=== PATIENT | male | born 1955 | race African-American/Black ===

== ENCOUNTER 2019-12-04 12:42 | Emergency (ER) | payer OTHER, SELFPAY ==
--- NOTE | ~2019-12-04 | XR_ITS ---
EXAMINATION: XR abdomen/kub 1V DATE: 12/04/2019 14:49 INDICATION: Constipation. Abdominal pain. TECHNIQUE: A supine view of the abdomen on 2 radiographs was obtained. COMPARISON: None. FINDINGS: There are no dilated loops of bowel. There is a moderate volume of stool in the colon. Calc ifications in the pelvis are likely phleboliths. IMPRESSION: 1. Nonobstructive bowel gas pattern. Reviewed, dictated and finalized at location B. 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
--- NOTE | ~2019-12-04 | CT_ITS ---
EXAMINATION: CT abdomen pelvis w con EXAM DATE: 12/04/2019 17:24 INDICATION: Low abdominal pain. Recent hemorrhoidectomy. Constipation. TECHNIQUE: Spiral CT of the abdomen and pelvis was performed following intravenous injection of 100 m L Omnipaque 350. Axial, coronal and sagittal images were reviewed. The dose-length product (DLP) fo r this examination was 1456.50 mGy-cm. The exposure was tailored according to patient size (auto mA exposure control), and iterative reconstruction (ASIR) was used as additional dose reduction techniqu e. There is no prior study for comparison. FINDINGS: The liver, spleen, adrenal glands and pancreas are unremarkable. Gallbladder is unremarkab le. No biliary obstruction. Portal and splenic veins are patent. Kidneys enhance symmetrically. T here is no hydronephrosis. There is moderate prostatomegaly. The bladder is unremarkable. There is no retroperitoneal or pelvic lymphadenopathy. Small bilateral inguinal fat-containing hernias. The appendix is normal. The stomach and small bowel are unremarkable. There is moderate amount of c olonic stool. There is mild sigmoid colonic diverticulosis. There is no adjacent inflammatory change to suggest diverticulitis. No free intraperitoneal gas. The heart is normal in size. There are n o pericardial or pleural effusions. There are bibasilar linear opacities, subsegmental atelectasis. There are no osteoblastic or osteolytic lesions identified. IMPRESSION: 1. No acute intra-abdominal findings. 2. Moderate amount of colonic stool, constipation. 3. Prostatomegaly. Reviewed, dictated and finalized at location A. 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
[2019-12-04 13:13] VITALS: BP 132/101; PULSE 80; RESP 17; TEMP 37.3; O2SAT 98
[2019-12-04 16:13] LABS: Basophils Absolute Auto 0.1 K/mm3 (0.0-0.1); Basophils Percent Auto 1.3 % (0.2-1.2); Eosinophils Absolute Auto 0.3 K/mm3 (0-0.3); Eosinophils Percent Auto 4.1 % (0-4.4); Hematocrit 41.3 % (42.0-52.0); Hemoglobin 13.1 g/dL (14.0-18.0); Immature Granulocyte Absolute 0.03 K/mm3 (0.00-0.031); Immature Granulocyte Percent A 0.4 % (0-0.5); Lymphocytes Absolute Auto 1.89 K/mm3 (0.9-3.2); Lymphocytes Percent Auto 24.1 % (18.3-44.2); Mean Corpuscular HGB Conc 31.7 g/dl (32-36); Mean Corpuscular Hemoglobin 30.7 pg (26-34); Mean Corpuscular Volume 96.7 fl (80-100); Mean Platelet Volume 10.4 fl (7.4-10.4); Monocytes Absolute Auto 0.9 K/mm3 (0.1-0.6); Monocytes Percent Auto 10.8 % (2.6-8.5); Neutrophils Absolute Auto 4.7 K/mm3 (1.3-6.7); Neutrophils Percent Auto 59.3 % (45.5-73.1); Platelet Count Result 235 k/mm3 (150-375); Red Blood Count 4.27 M/mm3 (4.6-6.20); Red Cell Distribution Width 11.8 % (11.5-14.5); White Blood Count 7.8 K/mm3 (4.5-10.0)
[2019-12-04 16:25] LABS: Alanine Aminotransferase 64 U/L (4-50); Albumin Level 3.9 g/dL (3.5-5.1); Alkaline Phosphatase 56 U/L (38-126); Aspartate Amino Transferase 49 U/L (17-59); Bilirubin,Total 0.6 mg/dL (0.2-1.3); Blood Urea Nitrogen 9 mg/dL (9-20); Calcium 9.1 mg/dL (8.4-10.2); Carbon Dioxide 26 mmol/L (22-30); Chloride 103 mmol/L (98-107); Estimated Glomerular Filt Rate > 60; Glucose 105 mg/dL (75-110); Lipase 28 U/L (23-300); Sodium 138 mmol/L (137-145)
[2019-12-04] MEDS: LACTATED RINGERS 1,000 ML 999 ML IV CONT (17:13)
[2019-12-04 17:34] LABS: Add Urine Microscopic? YES; Appearance Urine Clear (Clear); Bilirubin Urine Negative (Negative); Blood Urine Negative (Negative); Color Urine Yellow (Yellow); Glucose Urine UA Negative (Negative); Ketones Urine Negative (Negative); Leukocyte Esterase Ur Trace LEU/UL (Negative); Mucus Urine Few /lpf; Nitrate Urine Negative (Negative); Protein Urine Negative (Negative); RBC Urine 0-2 /hpf (0-2); Specific Grav Ur 1.019 (1.001-1.035); Squamous Epithelial Cell Urine Rare /hpf (Few); Urobilinogen Urine Negative mg/dL (<2.0)
[2019-12-04] MEDS: METHYLNALTREXONE 12 MG/0.6 ML VIAL SUB-Q (17:57)
--- NOTE | 2019-12-04 18:22 | ED.ABDPAIN ---
HPI - Abdominal Pain General Chief Complaint: Abdominal Pain Stated Complaint: abd pain Time Seen by Provider: 12/04/19 15:45 Source: patient Limitations: no limitations History of Present Illness HPI narrative: The patient is a 64-year-old male who presents to emergency department for evaluation of crampy abdominal pain for the last several days coupled with constipation and some rectal pain patient had a hemorrhoidectomy 10 days ago has not followed up since the incident Related Data Allergies Allergy/AdvReac Type Severity Reaction Status Date / Time No Known Allergies Allergy Verified 12/04/19 17:14 [facility] Social History Social History Gender identity (if verbalized by the patient): Male Course Course Emergency Course: Patient in the room aware of case findings treatment plan and diagnosis agreeing to follow-up as directed or to return if symptoms worsen or concerns Vital Signs Vital signs: Vital Signs Temperature 99.1 F 12/04/19 13:13 Pulse Rate 80 12/04/19 13:13 Respiratory Rate 17 12/04/19 13:13 Blood Pressure 132/101 H 12/04/19 13:13 Pulse Oximetry 98 12/04/19 13:13 Temperature 99.1 F 12/04/19 13:13 Pulse Rate 80 12/04/19 13:13 Respiratory Rate 17 12/04/19 13:13 Blood Pressure 132/101 H 12/04/19 13:13 Pulse Oximetry 98 12/04/19 13:13 MDM - Abdominal Pain MDM Narrative Medical decision making narrative: Patient in the room without high risk changes in the blood work or imaging with constipation as the likely etiology of his symptoms felt appropriate for discharge home provided with reasons to return Lab Data Result diagrams: 12/04/19 16:07 12/04/19 16:07 Labs: Lab Results 12/04/19 12/04/19 12/04/19 Range/Units 16:07 16:07 17:16 WBC 7.8 (4.5-10.0) K/mm3 RBC 4.27 L (4.6-6.20) M/mm3 Hgb 13.1 L (14.0-18.0) g/dL Hct 41.3 L (42.0-52.0) % MCV 96.7 (80-100) fl MCH 30.7 (26-34) pg MCHC 31.7 L (32-36) g/dl RDW 11.8 (11.5-14.5) % Plt Count 235 (150-375) k/mm3 MPV 10.4 (7.4-10.4) fl Immature Gran % (Auto) 0.4 (0-0.5) % Neut % (Auto) 59.3 (45.5-73.1) % Lymph % (Auto) 24.1 (18.3-44.2) % Frio % (Auto) 10.8 H (2.6-8.5) % Eos % (Auto) 4.1 (0-4.4) % Baso % (Auto) 1.3 H (0.2-1.2) % Lymph # (Auto) 1.89 (0.9-3.2) K/mm3 Frio # (Auto) 0.9 H (0.1-0.6) K/mm3 Eos # (Auto) 0.3 (0-0.3) K/mm3 Baso # (Auto) 0.1 (0.0-0.1) K/mm3 Abs Immat Gran (auto) 0.03 (0.00-0.031) K/mm3 Absolute Neuts (auto) 4.7 (1.3-6.7) K/mm3 Absolute Nucleated RBC 0.0 (0.0-0.012) K/mm3 Nucleated RBC % 0.0 (0.0-0.2) % Sodium 138 (137-145) mmol/L Potassium 4.0 (3.4-5.0) mmol/L Chloride 103 (98-107) mmol/L Carbon Dioxide 26 (22-30) mmol/L BUN 9 (9-20) mg/dL Creatinine 0.90 (0.7-1.3) mg/dL Estim Creat Clear Calc Not Reportable Estimated GFR > 60 (59 - ) Glucose 105 (75-110) mg/dL Calcium 9.1 (8.4-10.2) mg/dL Total Bilirubin 0.6 (0.2-1.3) mg/dL AST 49 (17-59) U/L ALT 64 H (4-50) U/L Alkaline Phosphatase 56 (38-126) U/L Total Protein 7.0 (6.3-8.2) g/dL Albumin 3.9 (3.5-5.1) g/dL Lipase 28 (23-300) U/L Urine Color Yellow (Yellow) Urine Appearance Clear (Clear) Urine pH 6.0 (5.0-9.0) Ur Specific [place] 1.019 (1.001-1.035) Urine Protein Negative (Negative) mg/dL Urine Glucose (UA) Negative (Negative) mg/dL Urine Ketones Negative (Negative) mg/dL Ur Blood (Man) Negative (Negative) Urine Nitrate Negative (Negative) Urine Bilirubin Negative (Negative) Urine Urobilinogen Negative (<2.0) mg/dL Leukocyte Esterase Rfl Trace H (Negative) CARYN/UL Urine RBC 0-2 (0-2) /hpf Urine WBC 4-6 H /hpf Ur Squamous Epith Cells Rare (Few) /hpf Urine Mucus Few H /lpf Imaging Data Radiologist's impression: ITS Impressions Abd
[2019-12-04 19:53] VITALS: BP 140/92; PULSE 66; RESP 18; O2SAT 96
== END 2019-12-04 19:55 | disposition home or self-care (01) ==
PROVIDERS: Emergency Medicine Emergency Medical Services; Emergency Provider Emergency Medicine; PCP Internal Medicine Gastroenterology
DX: R10.9 Unspecified abdominal pain (principal)
CPT/HCPCS: 36415; 74018; 74177; 80053; 81001; 83690; 85025; 96360; 99284; J2212; J7120; Q9967